=== PATIENT | female | born 1970 | race Caucasian/White ===

== ENCOUNTER → 2017-10-21 08:17 | Outpatient (CLI) | payer BC, SELFPAY ==
--- NOTE | 2017-10-21 08:18 | MM_ITS ---
MM Dig screening mamm BI w/CAD CAD Screening COMPARISON: Digital mammograms 01/04/2015 and 10/13/2016 INDICATION: There is a history of breast cancer in patient's maternal aunt. There have been previous cyst aspirations in both breasts. TECHNIQUE: Standard CC and MLO images were obtained. R2 CAD reviewed. FINDINGS: Moderate heterogenic fibroglandular densities are seen in the central portions of both breast. The previously aspirated cyst inner quadrant right breast which was injected with apparent the time of the cyst aspiration has now totally collapsed. The previous dominant cyst left breast has apparently decompressed. There is an apparent asymmetric density central portion right breast likely a cyst and this was seen on the most recent mammogram 10/13/2016 and is basically stable but would recommend follow-up ultrasound to confirm stability. There is no suspicious lesion and no suspicious microcalcifications. IMPRESSION: Moderate breast density with cystic-appearing lesion central portion right breast and recommend patient return for ultrasound right breast BI-RADS Category: 0 Need Additional Imaging Evaluaiton RECOMMENDED FOLLOW-UP: IMM - IMMEDIATE FOLLOW-UP RECOMMENDED (A letter has been sent to the patient regarding results of the study.)
== END ==
PROVIDERS: Family Provider Pediatrics; PCP Pediatrics; Visit Provider Nurse Practitioner Obstetrics & Gynecology
DX: Z12.31 Encounter for screening mammogram for malignant neoplasm of breast (principal)
CPT/HCPCS: 77067

== ENCOUNTER → 2017-11-02 12:37 | Outpatient (CLI) | payer BC, SELFPAY ==
--- NOTE | 2017-11-02 12:41 | US_ITS ---
US breast RT complete . ORDERING PHYSICIAN : Nathaniel Hong MD PATIENT AGE: 47 years GENDER: Female COMPARISON: Previous breast ultrasound with aspiration 10/01/2016 Previous mammograms: 10/21/2017 and October 2016 INDICATION: Masses right breast-most likely cystic TECHNIQUE: Standard CC and MLO images were obtained. R2 CAD reviewed. FINDINGS: Ultrasound right breast complex fibrocystic breast RIGHT BREAST:Including axilla survey The previous large debris-filled cyst at 2:00 was aspirated in 2017. No significant residual. Question that the area at 12:00 could be related to this collapsed old cyst. A small cyst 7 mm cyst at 12:00. Not of concern 3:00. A 1 cm ovoid hypoechoic areas again seen. It was seen previously but seems to it seems to have greater internal echoes on today's images. Its width is greater than height-but there are some subtle irregularities along its anterior margin and posterior margin noted by technologist today.. Because of this I would suggest extending aspiration & if it does not aspirate mammotome biopsy would be warranted. 9:00 & 10:00.. Large bilobed cystic area observed.- 2 adjacent cysts together measure at least 3.8 cm length:. .. The largest at 9:00 measures up to 2.5 cm x 1.8 cm. Adjacent 2ndcyst towards 10:00 measuring 1.8 cm diameter. These correspond with a rounded densities on recent 10/21/2017 mammogram. An present on 2017 studies. . Axillary survey unremarkable IMPRESSION: 1. The 2 large round densities on recent mammogram which reflect large bilobed cystic area.(Together this bilobed cyst spans nearly 3.8 cm length) Largest benign-appearing cyst 2.5 cm at 9:00; and the other nearly 2 cm at 10 o'clock position.. 2.* However there is a small 1 cm indeterminate area at 3:00 which measures.. Slight increased echogenicity with with suggestion of very irregularity at anterior margin..- It is this area that would benefit from attempted cyst aspiration & if it does not aspirate mammotome biopsy warranted. BI-RADS Category: 4 Suspicious Abnormality-Biopsy Considered RECOMMENDED FOLLOW-UP: BIO - BIOPSY RECOMMENDED Recommended aspiration of the more echogenic indeterminate ovoid area at at 3:00. Right breast If it does not aspirate then mammotome biopsy warranted.. Also if desired we can aspirate the other larger benign-appearing bilobed cystic area at the 9/10 o'clock position at same setting. (A letter has been sent to the patient regarding results of the study.)
== END ==
PROVIDERS: Family Provider Pediatrics; PCP Pediatrics; Visit Provider Nurse Practitioner Obstetrics & Gynecology
DX: R92.2 Inconclusive mammogram (principal)
CPT/HCPCS: 76641

== ENCOUNTER → 2017-11-16 09:35 | Outpatient (CLI) | payer BC, SELFPAY ==
--- NOTE | 2017-11-16 | MM_ITS ---
US breast RT complete, US organ site (breast), US mammotome bx RT - Choco motome Bx Site A US breast cyst asp Rt breast , - Aspiration Site B MM Dig mamm DX unilat RT CAD, - right mammogram post biopsy INDICATION: . Solid indeterminate Breast nodule . It likely fibroadenoma by prior ultrasound With slight irregular margins Also history of fibrocystic breast disease with prominent cysts & previous cyst aspirations. COMPARISON: October 21, 2017 bilateral screening mammogram and 11/02/2017 right breast ultrasound. Also October 2016 mammogram and previous ultrasounds ==== FINDINGS AND PROCEDURE: === ULTRASOUND RIGHT BREAST: SITE A :The initial ultrasound again shows small nodular 3:00 measures up to 9 mm maximally... Slightly lobulated subtle irregular margins compared to previous ultrasound studies as well as its anchor minimal increase in size prompted today's biopsy. Its position was confirmed and the best route for biopsy was determined by Dr. Hernandez and technologist MW SITE B: Large BILOBED CYSTIC area spanning up to 3.8 cm was again identified. ULTRASOUND-GUIDED MAMMOTOME BIOPSY W/ CLIP PLACEMENT RT BREAST ... SITE A Patient received Xanax 1 mg & Lortab5 Prior to the study for comfort and minor sedation. Following sterile preparation, local skin anesthesia & deep Xylocaine anesthetic placement we proceeded with subsequently mammotome biopsy.-a Vacuum assisted core biopsy device Small 2 mm incision was made in the skin by Dr. Hernandez after additional local skin anesthesia was placed, as well as deep anesthetic placement posterior to the lesionThe 12-gauge mammotome needle was then passed under ultrasound guidance. Sample trough placed posterior aspect of the nodule concern and multiple biopsies were obtained removing majority portion of this this nodule, if not all. The nodule. Patient tolerated procedure well.. At the end of procedure small clip with collagen plug was placed at the biopsy site. Patient with minor discomfort. Moderately dense breasts of this region. PATHOLOGY REPORT SITE A:. Benign Fibroadenoma at SITE A ULTRASOUND GUIDED CYST ASPIRATION --SITE B Using the the above same incision, because of patient's tenderness related to these large cysts additional Xylocaine anesthetic was then placed along the the anticipated track for the cyst aspiration.. A 20-gauge spinal needle was then placed and directed to the large bilobed cystic area at 10:00. Each of these 2 adjacent cysts were then aspirated.. Typical cloudy slightly greenish/brown fluid obtained from the cyst was obtained and was sent for cytology. . I attempted to inject air into the cyst cavity as some report this tends to inhibit or diminished refilling of cyst. CYTOPATHOLOGY SITE B: Negative for Malignant Cells. Foam cells and apocrine metaplasia compatible with benign cyst DIAGNOSTIC RIGHT MAMMOGRAM-post biopsy . SITE: A: The metallic clip at the medial right breast at site of 3:00 mammotome biopsy is noted. The nodular density seen here on plain film with now smaller with minimal postbiopsy in this area. SITE: B: Generous air is seen filling the cyst cavity and adjacent soft tissues at the aspirated cyst. The solid density previously seen on the right mammogram no longer evident but rather replaced by air for the most part. IMPRESSION 1. Initial ultrasound again confirmed/& identified the 9 mm solid nodule at 3:00 and the large report 8 cm bilobed cyst 10:00,. This initial imaging identified the best route to approach both of these areas 2. SITE A:. Mammotome biopsy removed nearly all the solid nodule at 3:00. PATHOLOGY/ HISTOLOGY report confirms fibroadenoma at which matches the ultrasound appearance. Clip was placed
== END ==
PROVIDERS: Family Provider Pediatrics; PCP Pediatrics; Visit Provider Nurse Practitioner Obstetrics & Gynecology
DX: N60.11 Diffuse cystic mastopathy of right breast (principal)
CPT/HCPCS: 19083; 76641; 77065; C2618

== ENCOUNTER → 2018-07-12 14:12 | Outpatient (CLI) | payer BC, SELFPAY ==
--- NOTE | 2018-07-12 14:13 | MM_ITS ---
MM Dig mamm BI DX w/CAD, US breast RT complete Ordering Physician: Nathaniel Hong MD Patient Age: 48 years Female COMPARISON: November 16, 2017 right breast ultrasound-guided breast with ultrasound Mammotome biopsy and post biopsy right mammogram . October 2017 right breast ultrasound and bilateral screening mammogram INDICATION: Follow-up densities both breast. Biopsies right breast November. DIAGNOSTIC BILATERAL MAMMOGRAM. TECHNIQUE: MLO cc view both breast along with axillary cc view both breast. Right breast. No prominent findings. Only Question some vague additional density just lateral retroareolar region on initial cc view which seems to dissipate on the subsequent axillary cc view. It can be followed particularly since no significant features here on subsequent today ultrasound. Metallic marker from last years percutaneous biopsy at medial right breast 3 o'clock position. Symptoms No discrete density at 12:00 to definite correspond with the previously discussed above. . ULTRASOUND RIGHT BREAST including axillary survey Images entire right breast were performed including survey of the axilla/.cz 12:00.. There is a Semisolid debris-filled partially septated cyst; vs developing fibroadenoma. Measure 9.5 mm length x 5 mm AP.At Central portion breast, Behind the nipple. This Present on previous October 27, 2012 where it appeared to be more likely a cyst. Appears Slightly larger today than previous study and indeterminate character (previously 7.7 mm length. Suggest follow-up right mammogram, & right breast ultrasound 4 -6 months to further evaluate this indeterminate but most likely benign area.. Patient does have a significant history of fibrocystic breast disease as well as fibroadenomas... Thus I believe short-term follow-up I believe a be most feasible & appropriate to follow this area at 12 o'clock position. 6:00. Benign cyst measuring up to 2 cm length x 1.7 cm x 0.65 cm AP located at 6:00, inferior central breast behind the nipple.. Slightly lobular posterior margin of benign-appearing cyst. 5:00. Very tiny barely appreciable cyst 3.4 mm length times less than 1.5 mm AP. Central breast behind nipple. Ultrasound Axillary survey on right-no significant findings. Scattered benign-appearing lymph nodes. ...... IMPRESSION: ............ 1. RIGHT BREAST: -Follow-up right mammogram & right breast ultrasound 5-6 months recommended A)...... RIGHT BREAST ULTRASOUND today. Slight more evident indeterminate area at 12:00 behind nipple. Measures 9.5 mm length. Very Slightly larger than previous 2011 study. Tend to favor slight septated Debris-filled cyst although could reflect developing small fibroadenoma.. Doubt other process but warrants follow-up right mammogram right breast ultrasound 4 -6 months to further evaluate .... Also note 2 cm clear benign cyst at 6-7 o'clock position on ultrasound. (Patient with more prominent large benign cyst previous studies) B) ... RIGHT MAMMOGRAM: No prominent findings today. Only question vague additional density lateral central retroareolar region cc view Also note the metallic marker from Nov 2017 Percutaneous biopsy the right breast at 3:00 position. 2.... LEFT BREAST.... No significant new findings Follow-up in one year on left 3. Note Mammography is of decreased sensitivity in these areas of denser breast tissue bilateral BI-RADS Category: 3 Probably Benign Finding Short Term Follow-up *RECOMMENDED FOLLOW-UP: 6M 6 MONTH FOLLOW-UP RIGHT breast mammogram and ultrasound 4-6 months A letter has been sent to the patient regarding results of the study.)
== END ==
PROVIDERS: PCP Pediatrics; Visit Provider Nurse Practitioner Obstetrics & Gynecology
DX: R92.8 Other abnormal and inconclusive findings on diagnostic imaging of breast (principal)
CPT/HCPCS: 76641; 77066

== ENCOUNTER → 2019-01-14 14:22 | Outpatient (CLI) | payer BC, SELFPAY ==
--- NOTE | 2019-01-14 14:24 | US_ITS ---
MM Dig mamm DX unilat RT CAD, US breast RT complete INDICATION: Follow-up abnormal mammogram, 6 month follow-up ORDERING PHYSICIAN: Nathaniel Hong MD PATIENT AGE: 48 years COMPARISON: 07/12/2018, 10/11/2017 TECHNIQUE: Standard images performed along with spot compression views and right breast ultrasound FINDINGS: There is gaseous fibroglandular tissue which decreases the sensitivity of mammography. There is a 2 cm well-circumscribed nodule in the retroareolar region which has developed compared to the previous exam but was present on 10/21/2017. A biopsy clip is present in the medial aspect of the right breast. Other areas of asymmetric density are noted which include a linear area of increased density along the inferior aspect of the right breast posteriorly similar to an older exam of 06/27/2013. There is a cluster of calcifications in the superior aspect of the right breast. These are not significantly changed. Follow-up suggested Right breast ultrasound: There is a 10 mm complex cystic area at 12:00 near the nipple, 6 mm cyst near the nipple and 2.3 x 2 cm cyst 6:00 near the nipple corresponding to mammographic abnormality. IMPRESSION: Probably benign findings of the right breast BI-RADS Category: 3 Probably Benign Finding Short Term Follow-up RECOMMENDED FOLLOW-UP: 6M - 6 MONTH FOLLOW-UP (A letter has been sent to the patient regarding results of the study.)
== END ==
PROVIDERS: PCP Pediatrics; Visit Provider Nurse Practitioner Obstetrics & Gynecology
DX: R92.8 Other abnormal and inconclusive findings on diagnostic imaging of breast (principal)
CPT/HCPCS: 76641; 77065

== ENCOUNTER → 2019-07-29 13:04 | Outpatient (CLI) | payer BC, SELFPAY ==
--- NOTE | 2019-07-29 13:06 | US_ITS ---
PROCEDURE: MM DIG MAMM BI DX W/CAD CLINICAL INDICATION: Dx Mamm right breast-abnormal mammogram Follow-up abnormal mammogram COMPARISON: [facility] DIGITAL MAMM-SCREEN BILATERAL from 06/25/2011 [facility] DIGITAL MAMM-SCREEN BILATERAL from 06/24/2012 [facility] DIG MAMM-SCREEN YI from 06/27/2013 [facility] DIG MAMM-SCREEN YI from 01/04/2015 [facility] DIG MAMM-SCREEN YI W/CAD from 10/13/2016 [facility] MM Dig screening mamm BI w/CAD from 10/21/2017 DXRT MM Dig mamm DX unilat RT CAD from 11/16/2017 DXBI MM Dig mamm BI DX w/CAD from 07/12/2018 DIG MAMM-DX UNI-RT from 01/14/2019 BREASTRT US breast RT complete from 01/14/2019 US BREAST RT COMPLETE from 07/29/2019 TECHNIQUE: Standard images performed along with spot compression views of the right breast and right breast ultrasound FINDINGS: There is average fibroglandular tissue. Right breast: 2 cm benign-appearing nodules present in the retroareolar region slightly lateral of the right breast. Not significantly changed. Biopsy clip is present in the medial aspect of the right breast as before. Right breast ultrasound: There are multiple cysts present. There is a complicated cystic lesion at 12 o'clock at which in combination measures 15 mm not significantly changed. 5 mm cyst at 3 o'clock. There is a 2.3 cm lobulated cyst at 9 o'clock. This was likely the previously described 6 o'clock lesion. No suspicious nodules are evident. No change from the previous exam. Left breast: No malignant appearing mass or malignant-appearing microcalcification IMPRESSION: Overall no significant change. Benign findings. BI-RAD Category: 2 Benign Finding(s) FOLLOW-UP: 1YR 1 Year Follow-up (A letter has been sent to the patient regarding results of the study.) Dictated by: Da Burleson MD 08/03/2019 09:37 Electronically signed by Da Burleson MD in [place] 08/03/2019 09:37
== END ==
PROVIDERS: PCP Pediatrics; Visit Provider Nurse Practitioner Obstetrics & Gynecology
DX: R92.8 Other abnormal and inconclusive findings on diagnostic imaging of breast (principal)
CPT/HCPCS: 76641; 77066

== ENCOUNTER → 2020-08-13 14:28 | Outpatient (CLI) | payer BC, SELFPAY ==
--- NOTE | 2020-08-13 14:35 | MM_ITS ---
PROCEDURE: MM DIG SCREENING MAMM BI W/CAD Digital Breast Tomosynthesis Included CLINICAL INDICATION: screening xmg/ Radiologist recommended 1yr. f/u There is a history of breast cancer in the patient's aunt. There has been a previous biopsy right breast and a previous cyst aspiration ,which breast was not identified in the history COMPARISON: MG DXBI MM Dig mamm BI DX w/CAD from 07/12/2018 MG DIG MAMM-DX UNI-RT from 01/14/2019 MG MM DIG MAMM BI DX W/CAD from 07/29/2019 TECHNIQUE: Standard CC and MLO images and 3D Tomosynthesis was obtained. R2 CAD reviewed. FINDINGS: Moderate fibroglandular densities are seen in the central portions of both breast. More nodularity right breast than left as was noted previously and previous ultrasound exam showed multiple benign-appearing cysts right breast. There is no new or suspicious lesions seen in either breast and no suspicious microcalcifications. IMPRESSION: Moderate breast density no suspicious lesions seen BI-RAD Category: 2 Benign Finding(s) FOLLOW-UP: 1YR 1 Year Follow-up (A letter has been sent to the patient regarding results of the study.) Dictated by: Dr. Stephen Jernigan MD 08/16/2020 16:16 Dr. Stephen Jernigan MD in [place] 08/16/2020 16:16
--- NOTE | 2020-08-13 14:36 | US_ITS ---
PROCEDURE: US BREAST RT COMPLETE CLINICAL INDICATION: 1 YEAR FOLLOW UP COMPARISON: US US BREAST RT COMPLETE from 07/29/2019 MG MM DIG SCREENING MAMM BI W/CAD from 08/13/2020 FINDINGS: Again noted is a somewhat septated complex cystic lesion 12 o'clock position near the nipple measuring 2.3 by 1.3 x 0.9 cm. There are 2 small benign-appearing cystic lesions at the 9 o'clock position where as previously either with a solitary larger cyst at this location. Likely the previous cyst has decompressed leaving 2 smaller cystic lesions at the same location. There are 2 normal appearing nodes in the axilla. There is no suspicious solid lesion. IMPRESSION: Benign-appearing cystic lesions as described Dictated by: Dr. Stephen Jernigan MD 08/22/2020 13:45 Dr. Stephen Jernigan MD in [place] 08/22/2020 13:45
== END ==
PROVIDERS: PCP Pediatrics; Visit Provider Nurse Practitioner Obstetrics & Gynecology
DX: Z12.31 Encounter for screening mammogram for malignant neoplasm of breast (principal)
CPT/HCPCS: 76641; 77063; 77067

== ENCOUNTER → 2021-09-03 14:37 | Outpatient (CLI) | payer BC, SELFPAY ==
--- NOTE | 2021-09-03 | US_ITS ---
PROCEDURE INFORMATION: Exam: US Right Breast, Complete MG Bilateral Screening 3D Mammography Exam date and time: 09/03/2021 2:37 PM Age: 51 years old Clinical indication: Screening mammogram. Short-term follow-up right breast ultrasound. There is a sonographic history of simple and complicated cysts within the right breast TECHNIQUE: Imaging protocol: Complete ultrasound of all four quadrants of the Right breast and the retroareolar regions, including ultrasound of the axilla when performed. Bilateral screening tomosynthesis and 2D mammography including computer-aided detection (CAD) when performed. COMPARISON: 1. MG MM DIG SCREENING MAMM BI W/CAD 08/13/2020 2:38 PM 2. MG MM DIG MAMM BI DX W/CAD 07/29/2019 1:38 PM 3. MG DIG MAMM-DX UNI-RT 01/14/2019 2:44 PM 4. MG DXBI MM Dig mamm BI DX w/CAD 07/12/2018 2:41 PM Right breast ultrasound 08/13/2020, 07/29/2019, 01/14/2019 FINDINGS: MAMMOGRAPHY: Breast composition: The breast tissue is heterogeneously dense, which may obscure small masses. Mass: Mostly obscured slightly outer right anterior mass measures about 6 mm compared with about 2 cm on 07/29/2019 and 6 mm on 08/13/2020. No new or suspicious mass has developed within either breast Architectural distortion: None. Calcifications: None. Asymmetric density: None Skin thickening: None. Axillary adenopathy: None. ULTRASOUND: Ultrasound assessment of the entire right breast including retroareolar breast and axilla was performed There is a 7 mm benign lipoma in the lateral aspect of the right breast approximating 2 o'clock posteriorly. Hypoechoic/anechoic gently lobulated horizontally oriented structures with features highly suggestive simple and complicated cysts are present as follows: 6 mm 2 o'clock right periareolar compared with 8 mm on 01/14/2019 7 mm 9 o'clock periareolar compared with 2 cm on 01/14/2019 4 mm 9 o'clock periareolar No axillary adenopathy Previously reported complicated cystic structure along the 12 o'clock axis on 08/13/2020 is no longer present IMPRESSION: No mammographic or sonographic evidence of malignancy. Annual screening is recommended unless otherwise clinically indicated. ASSESSMENT: Screening mammogram BIRADS: BI-RADS category 2: Benign Overall BIRADS: BI-RADS category 2: Benign
== END ==
PROVIDERS: PCP Pediatrics; Visit Provider Nurse Practitioner Obstetrics & Gynecology
DX: Z12.31 Encounter for screening mammogram for malignant neoplasm of breast (principal)
CPT/HCPCS: 76641; 77063; 77067

== ENCOUNTER 2022-07-08 07:34 | Day surgery (SDC) | payer BC, SELFPAY ==
[2022-07-08 08:00] VITALS: BP 116/79; PULSE 78; RESP 18; TEMP 36.2; O2SAT 95; BMI 26.6
--- NOTE | 2022-07-08 08:11 | SUR.PREOP ---
Pt progress number given to , verbalized understanding of system.
--- NOTE | 2022-07-08 08:18 | EXP.ANES.CKL ---
[facility] Medical History History of spontaneous Hypothyroidism Sinus problem Surgical History H/O tubal ligation Status post cryoablation Family History Other Cancer Social History (Updated 07/08/22 @ 08:01 by Milly Ridley RN) Smoking Status: Never smoker alcohol intake: current substance use type: denies use current occupational status: other Travel in the last 8 weeks: None caffeine: Yes special brittani needs: No agree to transfusion: No do you feel safe at home: Yes victim of physical abuse: No victim of emotional abuse: No victim of sexual abuse: No would you like helpful sources: No [facility] Anesthesia Checklist Patient Identification Patient Identification: Arm Band and Family Structural Data Admitted From: Direct Admit Planned Operative Procedure/s: colonocopy Consent for Planned Operative Procedure(s) Verified: Yes Verified Documents: Surgical Consent and History and Physical NPO Status Verified Time NPO: 00:00 Additional verifications Patient : No Anesthesia Reactions: No Hx Blood Transfusions: No Blood Transfusion Reaction: No Cephalosporin Allergy: No Previous Colonoscopy: No Airway Assessment C-Spine Mobility Assessed: Yes TMJ Mobility Assessed: Yes Dentition: Good Dentition Neurological Assessment Level of Consciousness: Awake, Alert, Appropriate and Follows Commands Genitourinary Assessment Voided 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
[2022-07-08 08:21] VITALS: O2SAT 95
--- NOTE | 2022-07-08 09:04 | HMH.SCOPE ---
Procedure: Date: 07/08/22 Patient Date of :: 1970 Procedure Performed:: Colonoscopy with polypectomy Indications:: Screening Performing Provider:: Trevon Hernandez MD Referring Provider:: . Sedation:: Monitored anesthesia care Procedure:: After informed consent was obtained the patient was taken to the endoscopy suite. Sedation ensued after the patient was transferred to the left lateral decubitus position. Pulse, blood pressure, and oxygen saturation were monitored throughout the procedure. Digital rectal exam revealed no significant abnormality. The colonoscope was placed in position. The entire colon was evaluated. The colonoscope was carefully removed and the patient was transferred to recovery in stable condition. Please see findings and specimens below for detail. Findings:: Bowel preparation fair Circumferential hemorrhoidal tags and cushions Anal canal polyps versus large dormant hemorrhoidal tissue Moderate tortuosity and spasticity Fairly significant lack of relaxation (particularly in sigmoid) Mild sigmoid diverticulosis Specimens:: Anal canal polyps (versus dormant hemorrhoidal tissue) Recommendations:: Follow-up pathology Timing of repeat colonoscopy is pending pathology but likely be but tween 2-3 years secondary to spasticity, tortuosity, and lack of relaxation. Complications:: No immediate Estimated blood obtained (mL): 1
[2022-07-08 09:07] VITALS: BP 124/87; PULSE 86; RESP 18; TEMP 36.1; O2SAT 95
[2022-07-08 09:17] VITALS: BP 131/84; PULSE 79; RESP 18; O2SAT 99
[2022-07-08 09:27] VITALS: BP 134/87; PULSE 78; RESP 18; O2SAT 100
[2022-07-08 09:37] VITALS: BP 140/96; PULSE 78; RESP 18; TEMP 36.3; O2SAT 100
== END 2022-07-08 09:37 | disposition home or self-care (01) ==
PROVIDERS: PCP Pediatrics; Visit Provider Surgery
PROC: 0DJD8ZZ Inspection of Lower Intestinal Tract, Via Natural or Artificial Opening Endoscopic (ICD-10-PCS; CPT 45385; principal; 2022-07-08 08:30)
DX: Z12.11 Encounter for screening for malignant neoplasm of colon (principal); K63.5 Polyp of colon; Z79.899 Other long term (current) drug therapy
CPT/HCPCS: 45385; 88304; J2704

== ENCOUNTER → 2022-09-19 07:47 | Outpatient (CLI) | payer BC, SELFPAY ==
--- NOTE | 2022-09-19 07:50 | MM_ITS ---
PROCEDURE INFORMATION: Exam: MG Bilateral Screening 3D Mammography Exam date and time: 09/19/2022 7:54 AM Age: 52 years old Clinical indication: Screening. No family history of breast cancer. History of bilateral benign cyst aspiration. TECHNIQUE: Imaging protocol: Bilateral Screening tomosynthesis and 2D mammography including computer-aided detection (CAD) when performed. COMPARISON: 1. MG MM DIG SCREENING MAMM BI W/CAD 09/03/2021 2:50 PM 2. MG MM DIG SCREENING MAMM BI W/CAD 08/13/2020 2:38 PM 3. MG MM DIG MAMM BI DX W/CAD 07/29/2019 1:38 PM 4. MG DIG MAMM-DX UNI-RT 01/14/2019 2:44 PM FINDINGS: MAMMOGRAPHY: Breast composition: The breasts are heterogeneously dense, which may obscure small masses. Mass: No suspicious mass. Architectural distortion: None. Calcifications: No suspicious calcifications. Asymmetric density: None. Skin thickening: None. Axillary adenopathy: None. Other findings: Right biopsy clip. IMPRESSION: No mammographic evidence of malignancy. Annual screening is recommended unless otherwise clinically indicated. ASSESSMENT: BI-RADS Category 2: Benign
== END ==
PROVIDERS: PCP Pediatrics; Visit Provider Nurse Practitioner Obstetrics & Gynecology
DX: Z12.31 Encounter for screening mammogram for malignant neoplasm of breast (principal)
CPT/HCPCS: 77063; 77067

== ENCOUNTER 2024-07-22 15:13 | Outpatient (CLI) | payer BC, SELFPAY ==
--- NOTE | 2024-07-22 15:14 | MM_ITS ---
PROCEDURE INFORMATION: Exam: MG Bilateral Screening 3D Mammography Exam date and time: 07/22/2024 3:06 PM Age: 54 years old Clinical indication: Screening examination. TECHNIQUE: Imaging protocol: Bilateral Screening tomosynthesis and 2D mammography including computer-aided detection (CAD) when performed. COMPARISON: 1. MG MM DIG SCREENING MAMM BI W/CAD 09/19/2022 7:54 AM 2. MG MM DIG SCREENING MAMM BI W/CAD 09/03/2021 2:50 PM FINDINGS: MAMMOGRAPHY: Breast composition: There are scattered areas of fibroglandular density. Mass: None. Architectural distortion: None. Calcifications: No suspicious calcifications. Asymmetric density: None. Skin thickening: None. Axillary adenopathy: None. IMPRESSION: No mammographic evidence of malignancy. Annual screening is recommended unless otherwise clinically indicated. ASSESSMENT: BI-RADS Category 1: Negative.
== END 2024-07-22 23:59 | disposition home or self-care (01) ==
LOC: RAD 15:14
PROVIDERS: PCP Nurse Practitioner Obstetrics & Gynecology; Visit Provider Nurse Practitioner Obstetrics & Gynecology
DX: Z12.31 Encounter for screening mammogram for malignant neoplasm of breast (principal)
CPT/HCPCS: 77063; 77067

== ENCOUNTER 2025-08-22 16:08 | Outpatient (CLI) | payer BC, SELFPAY ==
--- OUTSIDE RECORDS SUMMARY | 2025-08-22 16:10 | XMS_ITS | Encounter Summary ---
Author Organization [place] [address] Care Team Providers Care Specialist Wound Care Name Role Phone Hernan Miller MD Primary Care Provider [phone] Reason for Referral * DEXA (Routine) - Closed Specialty Diagnoses / Procedures Referred By Zhanna t Referred To Contact Radiology Diagnoses Postmenopausal Closed fracture of transverse process of lumbar vertebra, initial encounter ([facility]) Procedures DX BONE DENSITY AXIAL SKELETON [place] [address] [place] [address] Phone: tel: fax: Referral ID Status Reason Start Date Expiration Date Visits Re quested Visits Authorized [id number] Closed 01/05/2020 01/04/2021 1 1 Reason for Visit * Reason Onset Date Comments Bone Health Program 01/05/2020 Encounter Details Date Type Department Care Team (Late st Contact Info) Description 01/05/2020 Patient Outreach [facility] [address] [address] Hernan Miller MD [place] [facility] [place] [address] Bone Health Program Social History Tobacco Use Types Packs/Day Years Used Date Smoking Tobacco: Never Smokeless Tobacco: Never Alcohol Use Standard Drinks/Week Comments No 0 (1 standard drink = 0.6 oz pur e alcohol) Overall Financial Resource Strain (CARDIA) Answe r Date Recorded Difficulty of Paying Living Expenses Not hard at all 11/15/2019 PHQ-2 Answer Date Recorded PHQ-2 Score 0 01/26/2019 Hunger Vital Sign Answer Date Recorded Worried About Running Out of Food in the Last Ye ar Never true 11/15/2019 Ran Out of Food in the Last Year Never true 11/15/2019 PRAPARE - Transportation Answer Date Re corded Lack of Transportation (Medical) No 11/15/2019 Lack of Transportation (Non-Medical) No 11/15/2019 Comments No Sex and Gender Information Value Date Recorded Sex Assigned at Not on file Legal Sex Female 4:04 PM EDT Gender Identity Not on file Sexual Orientation Not on file COVID-19 Exposure Response Date Recorded In the last month, have you been in contact with someone who was confirmed or suspected to have Coronavirus / COVID-19? No / Unsure 01/05/2020 9:25 AM EDT documented as of this encounter Functional Status * Is the person deaf or does he/she have serious difficulty hearing? Answer Date of Assessment Author No 09/09/2019 11:32 AM Bassam Delvalle MA * Is the person blind or does he/she have serious difficulty seeing even when wearing glasses? Answer Date of Assessment Author No 09/09/2019 11:32 AM Bassam Delvalle MA * Does this person have serious difficulty walking or climbing stairs? Answer Date of Assessment Author No 09/09/2019 11:32 AM Bassam Delvalle MA * Does this person have difficulty dressing or bathing? Answer Date of Assessment Author No 09/09/2019 11:32 AM Bassam Delvalle MA * Because of a physical, mental or emotional condition, does this person have difficulty doing errands alone such as visiting a doctor's office or shopping? Answer Date of Assessment Author No 09/09/2019 11:32 AM Bassam Delvalle MA documented as of this encounter Mental Status * Because of a physical, mental or emotional condition, does this person have serious difficulty concentrating, remembering or making decisions? Answer Entry Date Author No 09/09/2019 11:32 AM Bassam Delvalle MA documented in this encounter Miscellaneous Notes * Telephone Encounter - Danika Sagastume, Clerical Staff - 01/05/2020 10:36 AM EDT Recommendation for bone density study was discussed with Ms. Bedolla and she is interested in scheduling a bone density study documented in this encounter Plan of Treatment Not on file documented as of this encounter Goals Goal Patient Goal Type Associated Problems Recent Progress Patient-Stated? Author Maintain a healthy diet, exercise regularly and maintain an ideal body weight General No Tanna Goetz CCMA documented as of this encounter Results * DX BONE DENSITY AXIAL SKELETON (01/10/2020 12:32 PM EDT) Anatomical Region Laterality Modality Dexa Scan 01/10/2020 Narrative 01/10/2020 3:56 PM EDT Indication: The patient is a post-menopausal female under age 65 with clinical risk factors for an osteoporotic fracture that requires a bone density assessment. Study was performed on [employer] [facility]. Bone Density: Region BMD T-score Z-score AP Spine (L1-L4) 0.873 -1.6 -0.8 Femoral Neck (Left) 0.632 -2.0 -1.2 Total Hip (Left) 0.856 -0.7 -0.2 Femoral Neck (Right) 0.663 -1.7 -0.9 Total Hip (Right) 0.815 -1.0 -0.6 1/3 Radius (Right) 0.664 -0.5 0.2 World Health Organization criteria for BMD interpretation classify patients as: Normal (T-score at or above -1.0), Low Bone Density (T-score between -1.0 and -2.5), or Osteoporotic (T-score at or below -2.5). T Scores are reported in Postmenopausal women and in men age 50 and older. Z-scores are reported in females prior to menopause and in males younger than age 50. 10-year Fracture Risk: FRAX not reported because: Prior hip or vertebral fracture Clinical Information Provided by Patient: Has had a previous hip or vertebral fracture. Has had a low trauma fracture. Has used or is currently using the following medications: Thyroid medication Has had or currently has the following medical conditions: Hyperparathyroidism, Back pain Patient maximum height was 66.0 Menopause Age: 49 Patient is postmenopausal Interpretation: Bone mineral density is in the low bone density range. Medical evaluation for secondary causes of low bone mineral density may be appropriate. A minimum of two years may be required between bone density studies due to inherent testing precision limitations. Intervals between BMD testing should be determined according to each patient's clinical status: typically one year after initiation or change in therapy is appropriate, with longer intervals once therapeutic effect is established. The spine portion of the study is limited by hypertrophic changes. Reported by: Rain Gunn PA-C, CCD on 01/10/2020 1:19:00 PM. Hernan iMller MD IMG DEXA ORDERABLES Final Resu lt documented in this encounter Visit Diagnoses Diagnosis Postmenopausal- Primary Asymptomatic postmenopausal status (age-related) (natural) History of vertebral fracture Personal history of traumatic fracture Closed fracture of transverse process of lumbar vertebra, initial encounter ([facility]) Postmenopausal Asymptomatic postmenopausal status (age-related) (natural) Closed fracture of transverse process of lumbar vertebra, initial encounter ([facility]) documented in this encounter Care Teams Specialist Wound Care Relationship Specialty Start Date End Date Hernan Miller MD [address] [place] [address] PCP - General 07/05/10 documented as of this encounter
--- OUTSIDE RECORDS SUMMARY | 2025-08-22 16:10 | XMS_ITS | Clinical Summary ---
Author Organization [facility] Address [address] [place] [address] Phone Care Team Providers Care Dispatcher Maintenance Service Name Role Phone Hernan Miller MD Primary Care Provider [phone] Allergies No known active allergies Medications famciclovir (FAMVIR) 500 mg Oral Tablet Take 500 mg by mouth 2 times daily as needed for Other. as need onset Active spironolactone (ALDACTONE) 100 mg Oral Tablet Take 100 mg by mouth daily. Active UNABLE TO FIND Take 1 Capsule by mouth daily. Med Name: focus factor supplement Active atorvastatin (LIPITOR) 10 mg Oral Tablet Take 1 Tablet by mouth daily. 90 Tablet 3 4 Active LEVOthyroxine (SYNTHROID) 100 mcg Oral TabletIndications: Acquired hypothyroidism Take 1 tablet by mouth once daily 90 Tablet 5 Active Active Problems Problem Noted Date Diagnosed Date Closed displaced fracture of middle phalanx of left ring finger 12/28/2023 Dislocation of interphalangeal joint of left rin g finger 08/24/2023 Acquired hypothyroidism 04/25/2016 Overview (12/03/2021): On euthyrox 150mcg daily. Assessment & Plan (06/16/2024 8:30 AM EDT): Orders: THYROID STIMULATING HORMONE; Future T4, FREE (THYROXINE); Future T3 FREE; Future LEVOthyroxine (SYNTHROID) 100 mcg Oral Tablet; Take 1 Tablet by mouth daily for 360 days. THYROID STIMULATING HORMONE T4, FREE (THYROXINE) T3 FREE Resolved Problems Problem Noted Date Diagnosed Date Resolved Date Left elbow pain 11/14/2019 12/03/2021 Assessment & Plan (11/14/2019 5:02 PM EDT): Given sling in the office today. Recommended repeat x-ray in 3 to 5 days to check for occult fracture. Closed fracture of transvers e process of thoracic vertebra 11/14/2019 12/03/2021 Assessment & Plan (04/09/2020 9:52 AM EDT): Continue current therapy. We will continue with PT for another 4 weeks. We will keep her off work during this time. Assessment & Plan (11/14/2019 5:03 PM EDT): Multiple transverse fractures of the thoracic spine is noted on CT scan. Continue current Percocet for pain control. She has a follow-up with spine on . Discussed the possibility constipation with pain medication. Neck pain 12/20/2013 12/03/2021 Overview (12/20/2013): EMG negative for cervical radiculopathy. Hypothyroid 11/03/2011 04/25/2016 Encounters Date Type Department Care Team Description 07/13/2025 Refill [facility] [address] [place] [address] Hernan Miller MD Medication Refill from Last 3 Months Immunizations Immunization Administration Dates Next Due Influenza Intradermal 07/18/2014 Influenza Vaccine Quadrivalent 07/04/2016 Influenza Vaccine Quadrivalent PF 2021,06/20/2019,06/25/2018,2016 Influenza Vaccine, Unspecifi ed Formulation 07/02/2017,06/06/2013,06/17/2012 Pneumococcal Conjugate Vacci ne 20 Valent 06/23/2023 Tdap 02/23/2025,03/07/2013 Surgical History Surgery Date Site/Laterality Comments TUBAL LIGATION HYSTEROSCOPY with endometrial ablation FINGER FRACTURE SURGERY 08/26/2023 Hand/Wrist/Left Left Ring Finger Open Reduction Internal Fixation and angelo hamate arthroplasty; Surgeon: Blaise Zhong MD; Location: [facility]; Service: Orthopedics Medical devices from this surgery are in the Medical Devices section. FINGER SURGERY 08/26/2023 Hand/Wrist/Left Surgeon: Blaise Zhong MD; Location: [facility]; Service: Orthopedics Medical devices from this surgery are in the Medical Devices section. HAND TENOLYSIS 01/26/2024 Hand/Wrist/Left left Ring Finger and Small Finger Tenolysis, Capsulectomy and Manipulation under Anesthesia; Surgeon: Blaise Zhong MD; Location: [facility]; Service: Orthopedics Medical History Medical History Date Comments Other screening mammogram 07/08/2011 cyst Hypothyroid 11/03/2011 Family History Medical History Relation Name Comments Esophageal Cancer Father Thyroid Disease Mother Anesth Problems Neg Hx Breast Cancer Neg Hx Colon Cancer Neg Hx Relation Name Status Comments Father Mother Alive Social History Tobacco Use Types Packs/Day Years Used Date Smoking Tobacco: Never Smokeless Tobacco: Never Tobacco Cessation:Counseling Given: Not Answered Alcohol Use Standard Drinks/Week Comments Yes 3 (1 standard drink = 0.6 oz pur e alcohol) Overall Financial Resource Strain (CARDIA) Answe r Date Recorded Difficulty of Paying Living Expenses Not hard at all 11/15/2019 PHQ-2 Answer Date Recorded PHQ-2 Total Score 0 02/23/2025 Hunger Vital Sign Answer Date Recorded Worried [...] on file Sexual Orientation Not on file Last Filed Vital Signs Vital Sign Reading Time Taken Comments Blood Pressure 114/80 03/17/2025 10:27 AM EDT Pulse 94 03/17/2025 10:27 AM EDT Temperature 36.1 C (96.9 F) 03/17/2025 10:27 AM EDT Respiratory Rate 18 03/17/2025 10:27 AM EDT Oxygen Saturation 96% 03/17/2025 10:27 AM EDT Inhaled Oxygen Concentration - - Weight 72.1 kg (159 lb) 03/17/2025 10:27 AM EDT Height 167.6 cm (5' 6 ) 02/23/2025 10:14 AM EDT Body Mass Index 25.66 02/23/2025 10:14 AM EDT Plan of Treatment Health Maintenance Due Date Last Done Comments Hepatitis B Vaccine (1 of 3 - 19+ 3-dose series) 1988 Cervical Cancer Screening 1990 Pap Smear 1990 HPV/Pap Cotest 1999 Cologuard 2014 FIT 2014 Sigmoidoscopy 2014 Virtual Colonography 2014 Zoster (1 of 2) 2019 Breast Cancer Screening 09/19/2024 09/19/19 23, 07/29/2019, 07/29/2019, Additional history exists COVID-19 Vaccine ( season) 2025 12/15/2020, 11/24/2020 Influenza Vaccine (#1) 2025 , 06/20/2019, 06/25/2018, Additional history exists Annual Wellness Exam 06/16/2025 06/16/2024, 01/16/20 15 Colon Cancer Screening 07/08/2032 Colonoscopy 07/08/2032 07/08/2022 DTaP/TDaP/Td (3 - Td or Tdap) 02/23/2035 02/23/2025, 03/07/2013 Pneumococcal Vaccine 50+ Completed 06/23/2023 Meningococcal B Vaccine Aged Out No l onger eligible based on patient's age to complete this topic Goals Goal Patient Goal Type Associated Problems Recent Progress Patient-Stated? Author Maintain a healthy diet, exercise regularly and maintain an ideal body weight General No Tanna Goetz CCMA Medical Devices Implanted Type Area Stake Setter Device Identifier Shelf Expiration Date Model / Serial / Lot Filler 1ml Orthblst Dbm Syr Bg - [id number] Implanted:Qty: 1 on 08/26/2023 by Blaise Zhong MD at [facility] Left: [employer] 02/02/2024 [id number] T4 Star - [id number] Implanted:Qty: 1 on 08/26/2023 by Blaise Zhong MD at [facility] Left: Finger [employer] [place] [id number] / / Screw 1x7mm Cortx Lcp Ft [employer] Hn - [id number] Implanted:Qty: 1 on 08/26/2023 by Blaise Zhong MD at [facility] Left: Finger [employer] [id number] / / Screw 1x9mm Cortx Lcp Ft St Hn - [id number] Implanted:Qty: 1 on 08/26/2023 by Blaise Zhong MD at [facility] Left: Finger [employer] [id number] / / Procedures Procedure Name Priority Date/Time Associated Diagnosis Comments MAMMOGRAPHY Routine 09/19/2022 from Last 3 Months or Most Recently Relevant to Health Maintenance Results * MAMMOGRAPHY (09/19/2022) Impressions SEP OFFICE - 09/19/2022 No mammographic evidence of malignancy. Annual screening is recommended unless otherwise clinically indicated. us Historical Provider HEALTH MAINTENANCE Final Res ult SEP OFFICE from Last 3 Months or Most Recently Relevant to Health Maintenance Insurance MARGY PPO ANTHEM PPO ANTHBAIRON PPO ANTHEM PPO [facility] [place] [id number] Care Teams Dispatcher Maintenance Service Relationship Specialty Start Date End Date Hernan Miller MD [address] [place] [phone] PCP - General 07/05/10
--- OUTSIDE RECORDS SUMMARY | 2025-08-22 16:10 | XMS_ITS | Encounter Summary ---
Author Organization [place] [address] Care Team Providers Care Skilled Labor Name Role Phone Hernan Miller MD Primary Care Provider [phone] Reason for Visit * Reason Comments Medication Refill Encounter Details Date Type Department Care Team (Late st Contact Info) Description 07/13/2025 Refill [facility] [address] [place] [address] Hernan Miller MD [address] [place] [address] Medication Refill Social History Tobacco Use Types Packs/Day Years Used Date Smoking Tobacco: Never Smokeless Tobacco: Never Alcohol Use Standard Drinks/Week Comments Yes 3 [...] on file Sexual Orientation Not on file documented as of this encounter Functional Status [...] Bassam Delvalle MA documented in this encounter Ordered Prescriptions Prescription Sig Dispense Quantity Refills Last Filled Start Date End Date LEVOthyroxine (SYNTHROID) 100 mcg Oral TabletIndications:Ac quired hypothyroidism Take 1 tablet by mouth once daily 90 Tablet 07/14/2025 documented in this encounter Plan of Treatment Not on file documented as of this encounter Goals Goal Patient Goal Type Associated Problems Recent Progress Patient-Stated? Author Maintain a healthy diet, exercise regularly and maintain an ideal body weight General No Tanna Goetz, SOHAN documented as of this encounter Visit Diagnoses Diagnosis Acquired hypothyroidism Unspecified hypothyroidism documented in this encounter Discontinued Medications Medication Sig Discontinue Reason Start Date End Da te LEVOthyroxine (SYNTHROID) 100 mcg Oral TabletIndications:Acquired hypothyroidism Take 1 Tablet by mouth daily for 360 days. 06/16/2024 07/14/2025 documented as of this encounter Care Teams Skilled Labor Relationship Specialty Start Date End Date Hernan Miller MD [address] [place] [phone] PCP - General 07/05/10 documented as of this encounter
--- NOTE | 2025-08-22 16:30 | MM_ITS ---
PROCEDURE INFORMATION: Exam: MG Bilateral Screening 3D Mammography Exam date and time: 08/22/2025 4:08 PM Age: 55 years old Clinical indication: Screening exam. TECHNIQUE: Imaging protocol: Bilateral Screening tomosynthesis and 2D mammography including computer-aided detection (CAD) when performed. COMPARISON: 1. MG MM DIG SCREENING MAMM BI W/CAD 07/22/2024 3:06 PM 2. MG MM DIG SCREENING MAMM BI W/CAD 09/19/2022 7:54 AM FINDINGS: MAMMOGRAPHY: Breast composition: The breasts are heterogeneously dense, which may obscure small masses. Mass: No suspicious masses. Architectural distortion: None. Calcifications: No suspicious calcifications. Asymmetric density: None. Skin thickening: None. Axillary adenopathy: None. IMPRESSION: No mammographic evidence of malignancy. Annual screening is recommended unless otherwise clinically indicated. ASSESSMENT: BI-RADS Category 1: Negative.
== END 2025-08-22 23:59 | disposition home or self-care (01) ==
LOC: RAD 16:08
PROVIDERS: PCP Pediatrics; Visit Provider Nurse Practitioner Obstetrics & Gynecology
DX: Z12.31 Encounter for screening mammogram for malignant neoplasm of breast (principal); R92.333 Mammographic heterogeneous density, bilateral breasts
CPT/HCPCS: 77063; 77067